=== PATIENT | male | born 1980 | race Two or more races ===

== ENCOUNTER 2021-12-28 19:28 | Emergency (ER) | payer OTHER ==
[2021-12-28 19:58] VITALS: BP 153/89; PULSE 87; RESP 20; TEMP 98.1; BMI 31.6
[2021-12-28] MEDS ORDERED: IBUPROFEN 400 MG TABLET (FP) PO ONE (21:53)
== END 2021-12-28 22:16 | disposition home or self-care (01) ==
LOC: JERFT 19:28
DX: S39.012A Strain of muscle, fascia and tendon of lower back, initial encounter (principal); V43.52XA Car driver injured in collision with other type car in traffic accident, initial encounter
CPT/HCPCS: 99283-25